=== PATIENT | female | born 1945 | race Caucasian/White ===

== ENCOUNTER 2016-07-13 10:56 | Day surgery (SDC) | payer OTHER ==
[~2016-07-13 10:56] MED LIST: DIPRIVAN VIAL ONE
[2016-07-13] MEDS ORDERED: TETRACAINE 0.5% OPHTH 1 DOSE AFFEYE ONE ×2 (12:45→15:48)
[2016-07-13] MEDS ORDERED: VIGAMOX 0.5% OPHTH 1 DOSE AFFEYE ONE ×5 (12:48→16:11)
[2016-07-13] MEDS ORDERED: PROLENSA OPHTH 1 DOSE AFFEYE ONE (13:00)
[2016-07-13] MEDS ORDERED: ALPHAGAN-P OPHTH 1 DOSE AFFEYE ONE (13:03)
[2016-07-13] MEDS ORDERED: CYCLOGYL 1% OPHTH 1 DOSE OP ONE ×6 (13:05→13:20)
[2016-07-13] MEDS ORDERED: AK-DILATE 2.5% OPHTH 1 DOSE OP ONE ×6 (13:06→13:21)
[2016-07-13] MEDS ORDERED: MYDRIACIL OPHTH 1 DOSE AFFEYE ONE ×6 (13:07→13:22)
[2016-07-13] MEDS: NS 500 ML IV 500 ML IV ONE ×2 (13:17→13:22)
[2016-07-13] MEDS ORDERED: BETADINE OPHTH SOLN 5% EACHEYE ONE (15:48)
[2016-07-13] MEDS ORDERED: XYLOCAINE-MPF 1% IJ ONE (16:02)
[2016-07-13] MEDS ORDERED: ADRENALINE CHL INJ IJ ONE (16:02)
[2016-07-13] MEDS ORDERED: DUOVISC IO ONE (16:02)
[2016-07-13] MEDS ORDERED: BSS OPHTH (PLAIN) 500 ML with VANCOMYCIN HCL 500 MG VIAL 25 MG, ADRENALINE CHL INJ 1 MG IR ONE ×3 (16:02)
[2016-07-13 17:18] VITALS: BP 160/70
== END 2016-07-13 16:40 | disposition home or self-care (01) ==
LOC: SURG1 10:56
PROVIDERS: ATTEND Ophthalmology
PROC: 08RK3JZ Replacement of Left Lens with Synthetic Substitute, Percutaneous Approach (ICD-10-PCS; principal; 2016-07-13 21:45)
PROC: 08DK3ZZ Extraction of Left Lens, Percutaneous Approach (ICD-10-PCS; principal; 2016-07-13 21:45)
DX: H25.12 Age-related nuclear cataract, left eye (principal); H25.012 Cortical age-related cataract, left eye
CPT/HCPCS: 99100; A4217; J0170; J3370; J3490

== ENCOUNTER 2016-08-03 07:57 | Day surgery (SDC) | payer OTHER ==
[2016-08-03] MEDS ORDERED: NS 500 ML IV 500 ML IV ONE (08:18)
[2016-08-03] MEDS ORDERED: TETRACAINE 0.5% OPHTH 1 DOSE AFFEYE ONE ×2 (08:28→12:40)
[2016-08-03] MEDS ORDERED: VIGAMOX 0.5% OPHTH 1 DOSE AFFEYE ONE ×5 (08:30→13:00)
[2016-08-03] MEDS ORDERED: PROLENSA OPHTH 1 DOSE AFFEYE ONE (08:42)
[2016-08-03] MEDS ORDERED: ALPHAGAN-P OPHTH 1 DOSE AFFEYE ONE (08:43)
[2016-08-03] MEDS ORDERED: CYCLOGYL 1% OPHTH 1 DOSE OP ONE ×3 (08:45→08:50)
[2016-08-03] MEDS ORDERED: MYDRIACIL OPHTH 1 DOSE AFFEYE ONE ×3 (08:45→08:50)
[2016-08-03] MEDS ORDERED: AK-DILATE 2.5% OPHTH 1 DOSE OP ONE ×3 (08:45→08:50)
[2016-08-03] MEDS ORDERED: DIPRIVAN VIAL ONE (09:46)
[2016-08-03] MEDS ORDERED: BETADINE OPHTH SOLN 5% EACHEYE ONE (12:40)
[2016-08-03] MEDS ORDERED: DUOVISC IO ONE ×2 (12:45→12:50)
[2016-08-03] MEDS ORDERED: ADRENALINE CHL INJ IJ ONE ×2 (12:45→12:50)
[2016-08-03] MEDS ORDERED: XYLOCAINE-MPF 1% IJ ONE ×2 (12:45→12:50)
[2016-08-03] MEDS ORDERED: BSS OPHTH (PLAIN) 500 ML with VANCOMYCIN HCL 500 MG VIAL 25 MG, ADRENALINE CHL INJ 1 MG IR ONE ×6 (12:48)
[2016-08-03 15:26] VITALS: BP 157/78
== END 2016-08-03 13:30 | disposition home or self-care (01) ==
LOC: SURG1 07:57
PROVIDERS: ATTEND Ophthalmology
PROC: 08RJ3JZ Replacement of Right Lens with Synthetic Substitute, Percutaneous Approach (ICD-10-PCS; principal; 2016-08-03 12:45)
PROC: 08DJ3ZZ Extraction of Right Lens, Percutaneous Approach (ICD-10-PCS; principal; 2016-08-03 12:45)
DX: H25.11 Age-related nuclear cataract, right eye (principal); H25.011 Cortical age-related cataract, right eye
CPT/HCPCS: 99100; A4217; J0170; J3370; J3490